=== PATIENT | female | born 1980 | race Caucasian/White ===

== ENCOUNTER 2017-09-30 22:18 | Emergency (ER) | payer BC ==
[~2017-09-30] VITALS: Ht 154.9 cm; Wt 45.4 kg
--- NOTE | 2017-09-30 22:55 | NUR ---
PT AMBULATORY TO ER BED 12. BIB SELF C/O FEVER/NAUSEA/LOW BACK PAIN X 3 DAYS. PT PLACED ON MARINE INSULATOR. PT VSS/NAD NOTED/RESP EVEN UNLABORED/SKIN WARM AND DRY/FEBRILE/AOX4. AWAITING MD NICHOLS.
--- NOTE | 2017-09-30 23:08 | NUR ---
AT BEDSIDE FOR EVAL.
--- NOTE | 2017-09-30 23:10 | NUR ---
URINE SPECIMEN OBTAINED AND SENT TO THE LAB.
--- NOTE | 2017-09-30 23:13 | NUR ---
RAPID FLU SWAB OBTAINED AND SENT TO THE LAB.
--- NOTE | 2017-09-30 23:15 | NUR ---
LAB AT BEDSIDE TO DRAW.
--- NOTE | 2017-09-30 23:16 | NUR ---
EMT AT BEDSIDE FOR EKG.
[2017-09-30] MEDS ORDERED: ACETAMINOPHEN ES 500 MG TABLET ONE (23:26)
[2017-09-30 23:30] LABS: BASOPHILS % (AUTO) 0.5 % (0.0-2.0); EOSINOPHILS % (AUTO) 0.1 % (0.0-6.0); HEMATOCRIT 41 % (33-45); HEMOGLOBIN 13.8 g/dL (11.5-14.8); LYMPHOCYTES # (AUTO) 1.1 /CMM (0.8-4.8); LYMPHOCYTES % (AUTO) 33.1 % (20.0-44.0); MEAN CORPUSCULAR HGB CONC 34 g/dl (31.0-36.0); MEAN CORPUSCULAR VOLUME 90 fL (82-100); MONOCYTES # (AUTO) 0.3 /CMM (0.1-1.30); MONOCYTES % (AUTO) 7.7 % (2.0-12.0); NEUTROPHILS % (AUTO) 58.6 % (43.0-81.0); PLATELET COUNT (AUTO) 211 /CMM (150-450); RDW COEFFICIENT OF VARIATION 13.4 (11.5-15.0); RED BLOOD CELL COUNT(AUTO) 4.59 MIL/uL (4.0-5.2); WHITE BLOOD COUNT (AUTO) 3.5 K/uL (4.3-11.0)
[2017-09-30] MEDS ORDERED: ACETAMINOPHEN ES 500 MG TABLET PO ONE (23:30)
[2017-09-30 23:49] LABS: ALBUMIN 4.3 g/dL (3.4-5.0); BILIRUBIN,TOTAL 0.2 mg/dL (0.2-1.0); CALCIUM, SERUM 8.7 mg/dL (8.5-10.1); CREATININE 0.6 mg/dL (0.6-1.3); TOTAL PROTEIN, SERUM 8.1 g/dL (6.4-8.2)
[2017-10-01 00:18] LABS: APPEARANCE,URINE CLEAR (CLEAR); BILIRUBIN,URINE NEGATIVE (NEGATIVE); BLOOD, URINE 2+ Ery/uL (NEGATIVE); COLOR,URINE OTHER (YELLOW); KETONES,URINE NEGATIVE (NEGATIVE); LEUKOCYTE ESTERASE ,URINE 1+ (NEGATIVE); NITRITE, URINE NEGATIVE (NEGATIVE); PROTEIN,URINE NEGATIVE (NEGATIVE); UGLUCOSE NEGATIVE (NEGATIVE); UROBILINOGEN,URINE 0.2 EU/dL (0.2)
[2017-10-01 00:23] LABS: BACTERIA,URINE Few /HPF (None Seen); SQUAMOUS EPITHELIAL CELL,UR Few /HPF (None Seen)
--- NOTE | 2017-10-01 00:35 | NUR ---
MD AT BEDSIDE SPEAKING WITH THE PATIENT.
--- NOTE | 2017-10-01 00:46 | NUR ---
Patient discharged to home in stable condition. Written and verbal after care instructions given. Patient verbalizes understanding of instruction. Patient ambulatory with a steady gait.
[2017-10-01 00:47] VITALS: BP 118/66
== END 2017-10-01 00:48 | disposition home or self-care (01) ==
LOC: ER 22:18
DX: R50.9 Fever, unspecified (principal); R94.31 Abnormal electrocardiogram [ECG] [EKG]
CPT/HCPCS: 36415; 80048; 80076; 81001; 84703; 85025; 87040 ×2; 87086; 87804; 93005; 99285; A4606; Z7610; 81000-TC; 87400